=== PATIENT | female | born 1995 | race Caucasian/White ===

== ENCOUNTER 2022-09-27 17:53 | Emergency (ER) | payer OTHER ==
[~2022-09-27] VITALS: Ht 165.1 cm; Wt 99.8 kg
[2022-09-27] MEDS ORDERED: BENZTROPINE ME0.5 MG PO (18:27)
[2022-09-27] MEDS ORDERED: CABERGOLINE0.5 MG PO (18:28)
[2022-09-27] MEDS ORDERED: FLOVENT DISKUS50 MCG INH (18:30)
[2022-09-27] MEDS ORDERED: LEVOTHYROXINE25 MCG PO (18:31)
[2022-09-27] MEDS ORDERED: HALOPERIDOL5 MG PO (18:31)
[2022-09-27] MEDS ORDERED: OMEPRAZOLE MAGN20 MG PO (18:32)
[2022-09-27] MEDS ORDERED: VITAMIN D3125 MCG PO (18:32)
[2022-09-27] MEDS ORDERED: FAMOTIDINE20 M1 PO (18:33)
[2022-09-27] MEDS ORDERED: LARIN FE 1-201 EACH PO (18:34)
[2022-09-27] MEDS ORDERED: LYBALVI 20-101 EACH PO (18:34)
[2022-09-27] MEDS ORDERED: CETIRIZINE HYDR10 MG PO (18:35)
[2022-09-27 19:31] LABS: BILIRUBIN Negative (Negative); BLOOD Negative (Negative); CLARITY Clear (Clear); COLOR Yellow (Yellow); GLUCOSE Negative (Negative); KETONE Negative (Negative); LEUKO ESTERASE Negative (Negative); NITRITE Negative (Negative); SPECIFIC GRAVITY <= 1.005 (1.001-1.030); UROBILINOGEN 0.2 E.U./dl (0.0-1.0)
[2022-09-27 19:38] LABS: URINE AMPHETAMINES Negative (1000ng/ml); URINE BARBITURATES Negative (200ng/ml); URINE BENZODIAZEPINES Negative (200ng/ml); URINE COCAINE Negative (300ng/ml); URINE METHADONE Negative (300ng/ml); URINE OPIATES Negative (300ng/ml)
[2022-09-27 19:39] LABS: URINE CANNABINOIDS (THC) Negative (50ng/ml); URINE PHENCYCLIDINE Negative (25ng/ml)
[2022-09-27 20:12] LABS: RBC 0-2 rbc/hpf (0-2); WBC 0-2 wbc/hpf (0-5)
== END 2022-09-27 20:21 | disposition home or self-care (01) ==
LOC: ED 17:53
PROVIDERS: Emergency Medicine
DX: F43.20 Adjustment disorder, unspecified (principal); Z13.89 Encounter for screening for other disorder; Z79.899 Other long term (current) drug therapy

== ENCOUNTER 2022-12-15 08:39 | Emergency (ER) | payer OTHER ==
[~2022-12-15] VITALS: Ht 175.2 cm; Wt 117.5 kg
[~2022-12-15 08:39] MED LIST: BENZTROPINE ME0.5 MG PO; CABERGOLINE0.5 MG PO; CETIRIZINE HYDR10 MG PO; FAMOTIDINE20 M1 PO; FLOVENT DISKUS50 MCG INH; HALOPERIDOL5 MG PO; LARIN FE 1-201 EACH PO; LEVOTHYROXINE25 MCG PO; LYBALVI 20-101 EACH PO; OMEPRAZOLE MAGN20 MG PO; VITAMIN D3125 MCG PO
[2022-12-15] MEDS ORDERED: [UNRECOGNIZED DRUG - OTHER] PO (09:21)
[2022-12-15] MEDS ORDERED: HALOPERIDO100 MG/11 IM (09:25)
[2022-12-15 09:54] LABS: BASO % 0.3 % (0.0-1.0); EOS # 0.1 10*3/uL (0.0-0.4); EOS % 2.1 % (1.0-4.0); HEMATOCRIT 39.3 % (37.0-47.0); LYMPH # 1.6 10*3/uL (1.3-4.4); LYMPH % 26.1 % (27.0-41.0); MEAN CELL VOLUME 91.6 fl (81.0-99.0); MEAN CORPUSCULAR HGB 31.7 pg (27.0-31.0); MEAN CORPUSCULAR HGB CONC 34.6 g/dl (33.0-37.0); MEAN PLATELET VOLUME 10.9 fl (9.6-12.3); MONO # 0.5 10*3/uL (0.1-1.0); MONO % 7.6 % (3.0-9.0); NEUT # 3.9 10*3/uL (2.3-7.9); NEUT % 63.7 % (47.0-73.0); PLATELET COUNT AUTOMATED 209 10*3/uL (130-400); RED BLOOD COUNT 4.29 10*6/uL (4.10-5.10); RED CELL DISTRI WIDTH 12.6 % (0-14.5); WHITE BLOOD COUNT 6.1 10*3/uL (4.8-10.8)
[2022-12-15 10:19] LABS: ALKALINE PHOSPHATASE 64 U/L (46-116); BETA-HCG, QUANT < 3.0 mIU/mL (0-10); BUN 6 mg/dl (9-23); CHLORIDE 106 mmol/L (98-107); LIPASE 28 U/L (12-53); POTASSIUM 3.4 mmol/L (3.4-5.1); SGPT/ALT 18 U/L (10-49); TOTAL PROTEIN 6.6 gm/dL (6.0-8.0)
[2022-12-15 10:29] LABS: ETHYL ALCOHOL < 3.0 mg/dl (<3)
[2022-12-15 10:48] LABS: ACT PARTIAL THROMBO TIME 26.6 SECONDS (20.0-32.1)
[2022-12-15 12:01] LABS: BILIRUBIN Negative (Negative); BLOOD Negative (Negative); CLARITY Cloudy (Clear); COLOR Yellow (Yellow); GLUCOSE Negative (Negative); KETONE Negative (Negative); LEUKO ESTERASE 1+ (Negative); NITRITE Negative (Negative)
[2022-12-15 12:08] LABS: PH 8.5 (4.5-8.0)
[2022-12-15 12:09] LABS: URINE AMPHETAMINES Negative (1000ng/ml); URINE BARBITURATES Negative (200ng/ml); URINE BENZODIAZEPINES Negative (200ng/ml); URINE CANNABINOIDS (THC) Negative (50ng/ml); URINE COCAINE Negative (300ng/ml); URINE METHADONE Negative (300ng/ml); URINE OPIATES Negative (300ng/ml); URINE PHENCYCLIDINE Negative (25ng/ml)
[2022-12-15 12:15] LABS: BACTERIA 4+
== END 2022-12-16 13:10 ==
LOC: ED 08:39
PROVIDERS: Emergency Medicine
DX: F20.9 Schizophrenia, unspecified (principal); Z20.822 Contact with and (suspected) exposure to COVID-19; Z79.899 Other long term (current) drug therapy

== ENCOUNTER 2023-11-22 19:14 | Emergency (ER) | payer OTHER ==
[~2023-11-22] VITALS: Ht 165.1 cm; Wt 99.8 kg
[~2023-11-22 19:14] MED LIST changes: +HALOPERIDO100 MG/11 IM; +[UNRECOGNIZED DRUG - OTHER] PO
[2023-11-22 19:44] LABS: BILIRUBIN Negative (Negative); BLOOD Negative (Negative); CLARITY Clear (Clear); COLOR Yellow (Yellow); GLUCOSE Negative (Negative); KETONE Negative (Negative); LEUKO ESTERASE Trace (Negative); NITRITE Negative (Negative); PH 7.5 (4.5-8.0)
[2023-11-22 19:51] LABS: URINE AMPHETAMINES Negative (1000ng/ml); URINE BARBITURATES Negative (200ng/ml); URINE BENZODIAZEPINES Negative (200ng/ml); URINE CANNABINOIDS (THC) Negative (50ng/ml); URINE COCAINE Negative (300ng/ml); URINE METHADONE Negative (300ng/ml); URINE OPIATES Negative (300ng/ml); URINE PHENCYCLIDINE Negative (25ng/ml)
[2023-11-22 19:52] LABS: BASO % 0.4 % (0.0-1.0); EOS # 0.1 10*3/uL (0.0-0.4); EOS % 0.9 % (1.0-4.0); HEMATOCRIT 36.2 % (37.0-47.0); LYMPH # 2.5 10*3/uL (1.3-4.4); LYMPH % 36.7 % (27.0-41.0); MEAN CELL VOLUME 92.6 fl (81.0-99.0); MEAN CORPUSCULAR HGB CONC 34.5 g/dl (33.0-37.0); MEAN PLATELET VOLUME 11.4 fl (9.6-12.3); MONO # 0.5 10*3/uL (0.1-1.0); NEUT # 3.8 10*3/uL (2.3-7.9); NEUT % 54.9 % (47.0-73.0); PLATELET COUNT AUTOMATED 152 10*3/uL (130-400); RED BLOOD COUNT 3.91 10*6/uL (4.10-5.10); RED CELL DISTRI WIDTH 11.4 % (0-14.5); WHITE BLOOD COUNT 6.9 10*3/uL (4.8-10.8)
[2023-11-22 19:57] LABS: BACTERIA 1+
[2023-11-22 20:03] LABS: ACT PARTIAL THROMBO TIME 26.7 SECONDS (20.0-32.1)
[2023-11-22 20:19] LABS: ALKALINE PHOSPHATASE 48 U/L (46-116); CHLORIDE 108 mmol/L (98-107); CPK 107 U/L (34-171); LIPASE 29 U/L (12-53); POTASSIUM 3.5 mmol/L (3.4-5.1); SGPT/ALT 8 U/L (5-49); TOTAL PROTEIN 6.5 gm/dL (6.0-8.0)
[2023-11-22 20:20] LABS: BETA-HCG, QUANT < 3.0 mIU/mL (3-10); BUN < 5 mg/dl (9-23); ETHYL ALCOHOL < 3.0 mg/dl (<3)
== END 2023-11-23 17:54 ==
LOC: ED 19:14
PROVIDERS: Internal Medicine
DX: F20.9 Schizophrenia, unspecified (principal); R10.2 Pelvic and perineal pain; Z79.899 Other long term (current) drug therapy